=== PATIENT | female | born 1950 | race Caucasian/White ===

== ENCOUNTER 2016-09-29 14:07 | Inpatient (IN) | payer BC ==
--- NOTE | ~2016-09-29 | DS ---
Discharge Summary [facility] [address] [place]. [address] NAME: CAROLYN YEAGER : 54 STATUS : DIS IN PAT#: [id number] AGE: 65 ADM/REG DATE : 09/29/16 MR#: [id number] REPORT SERV DATE: 10/03/16 DICTATED BY: CAROL WEAVER DATE: 10/02/16 REPORT STATUS : Draft TRANSCRIBED BY: MODL DATE: 10/02/16 ADMISSION DATE: 09/29/2016 DISCHARGE DATE: 10/02/2016 CHIEF COMPLAINT ON ADMISSION: Uncontrolled pain at home. DISCHARGE DIAGNOSES: 1. Mycosis fungoides. 2. Olfvk-br-ckctxay pain. 3. End of life. HISTORY OF PRESENT ILLNESS: Please see full H and P by Shanti Mccain NP for details regarding initial presentation. HOSPITAL COURSE: 1. 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 Unfortunately, the patient is too weak to have aggressive chemo and she has not responded to most recent treatments. She has had progression of her disease and per Oncology, she is no longer a candidate for further treatment. After multiple discussions with the patient and family, they have opted for hospice care. The patient wishes to go home and be comfortable. She currently does not have any evidence of active infection in her wounds. She has been seen by Wound Care and hospice can continue to address these wounds. 2. 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 The patient is on dabigatran. We will defer to hospice whether this will be continued. 3. Qcwmx-un-umflnlh pain. The patient's pain is reasonably controlled on current medications. She will be discharged with those with hospice to titrate as appropriate. DISPOSITION: Home with [facility]. Discharge medication reconciliation will be per hospice care. Time spent on this discharge including discussion with case management and the patient's family is greater than 30 minutes. DNK/KEENA Carol Weaver MD / [id number] CC: Carol Weaver MD
--- NOTE | ~2016-09-29 | HP ---
History And Physical [place] [id number] [facility] [place]. [address] NAME: CAROLYN YEAGER : 54 STATUS : ADM IN [facility]#: [id number] AGE: 65 ADM/REG DATE : 09/29/16 MR#: [id number] REPORT SERV DATE: 09/29/16 DICTATED BY: LEWIS MCCAIN DATE: 09/29/16 REPORT STATUS : Draft TRANSCRIBED BY: MODL DATE: 09/29/16 DATE OF ADMISSION: 09/29/2016 CHIEF COMPLAINT: Uncontrolled pain, states hurting all over. HISTORY OF PRESENT ILLNESS: This patient is a 65-year-old female, who presented as a direct admission from Dr. Nishant Kitchen's office. The patient stated that she was having uncontrolled pain, rating her pain 20/10. States that she has wounds all over and has been unable to rest. Pain medication at home is not controlling her pain. The patient does present with a history of mycosis fungoides. She is under the care of Dr. Nishant Kitchen, [facility]. The patient states that she has had home health care and wound care at home for approximately two weeks. Stating home health nurse had assessed her this a.m. stating that the patient's pain is uncontrolled at home and felt the patient needed to be assessed inpatient. The patient does state that her last chemotherapy was approximately four to five weeks ago, but was last seen in Dr. Nishant Kitchen's office on 09/11/2016. The patient does deny any fever or chills. She denies any shortness of breath or chest pain. REVIEW OF SYSTEMS: Otherwise negative review of system except what is listed above. PAST MEDICAL HISTORY: 1. Hyperlipidemia. 2. Mycosis fungoides. 3. Anal cancer stage II. 4. Ischemic colitis. PAST SURGICAL HISTORY: 1. Thrombectomy, 2013. 2. Thrombolysis, left external iliac artery. 3. Left common femoral endarterectomy. 4. Left external iliac artery stent. ALLERGIES: NO KNOWN ALLERGIES. SOCIAL HISTORY: The patient is with two living children. Denies smoking. Denies alcohol use. Denies illicit drug use. ONCOLOGIST: Dr. Nishant Kitchen. WOUND CARE: Dr. Tolliver. HOME MEDICATIONS: 1. Allopurinol 300 mg one tab b.i.d. 2. Celexa 10 mg one p.o. daily. 3. Vitamin B12 of 1000 mcg inject once. 4. Desonate gel topical. History And Physical [address] [address] NAME: CAROLYN YEAGER : 54 STATUS : ADM IN PAT#: [id number] AGE: 65 ADM/REG DATE : 09/29/16 MR#: [id number] REPORT SERV DATE: 09/29/16 DICTATED BY: LEWIS MCCAIN DATE: 09/29/16 REPORT STATUS : Draft TRANSCRIBED BY: KEENA DATE: 09/29/16 5. Elidel cream topical, take as directed. 6. Fluconazole 200 mg tab one daily. 7. Folic acid 1 mg daily. 8. Hydralazine 25 mg one p.o. every 8 hours p.r.n. 9. MD Lanier mouthwash solution take as directed. 10.Morphine 15 mg one tab every four to 6 hours p.r.n. for pain. 11.Pralatrexate 40 mg daily. 12.Prochlorperazine 10 mg one p.o. every 4 to 6 hours p.r.n. 13.Triamcinolone cream topical as directed. 14.Tylenol PM one tablet at bedtime. 15.Ultram 50 mg one p.o. every 4 to 6 hours p.r.n. for pain. 16.Zofran 8 mg one p.o. every 8 hours p.r.n. for nausea. 17.Valchlor gel topical take as directed. PHYSICAL EXAMINATION: GENERAL: This patient is in no acute distress. VITAL SIGNS: O2 saturations 94% on room air, temperature 98.2, pulse is 97, respirations 16, blood pressure is 114/68. HEENT: Sclerae clear. Conjunctivae pink. NEURO: The patient is alert and oriented to person, place, date, time. NECK: No bruits. CHEST: Clear bilateral. No wheezes, rales, or rhonchi. HEART: Regular rhythm. No murmurs, rubs, or gallops. ABDOMEN: Soft. Bowel sounds active. Last bowel movement 09/29/2016. EXTREMITIES: No edema. SKIN: Lesions on forehead, arms, chest, back, lower extremities, buttocks, some larger than 2 cm. LABORATORY DATA: To be obtained. IMAGING: To be obtained. ASSESSMENT AND PLAN: 1. Mycosis fungoides, multiple plaques and lesions noted on all extremities, chest and back, buttocks and face. Wound Care will be consulted to see. We will obtain laboratory data as well. We will hold off on antibiotics at this time. We will consult Dr. Nishant Kitchen to see the patient as well. 2. Anal cancer. 3. Acute on chronic pain due to mycosis fungoides. The patient will continue home medications. We will add Dilaudid p.r.n. as needed. 4. Code status. The patient at this time is a full code. RANDA/KEENA Lewis Chatterjee History And Physical [address] [address] NAME: CAROLYN YEAGER : 54 STATUS : ADM IN [facility]#: [id number] AGE: 65 ADM/REG DATE : 09/29/16 MR#: [id number] REPORT SERV DATE: 09/29/16 DICTATED BY: LEWIS MCCAIN DATE: 09/29/16 REPORT STATUS : Draft TRANSCRIBED BY: KEENA DATE: 09/29/16 DAVE Mccain / [id number] CC: Tin Weaver MD
[~2016-09-29 14:07] MED LIST: ASA5GR PO; ATV.5 PO; ELIDEL TOP; LORTAB 5 PO; PLAVIX PO; TRIAMCINOLONE454 GM TOP; TYLENOL PM PO; VIST25 PO; ZOFRAN4 PO; [UNRECOGNIZED DRUG - OTHER] PO
[2016-09-29 16:49] LABS: HEMOGLOBIN 10.5 g/dL (12.0-16.0); MEAN CORPUS HGB CONC 33.8 g/dL (32.0-36.0); MEAN CORPUSCULAR HEMOGLOB 28.2 pg (26.0-34.0); MEAN PLATELET VOLUME 8.6 fL (9.2-13.0); RBC DISTRIBUTION WIDTH 15.4 % (12.0-16.0); RED CELL COUNT 3.72 10/6/uL (4.0-5.6)
[2016-09-29 16:52] LABS: HEMATOCRIT 31.1 % (36.0-48.0); MANUAL DIFF YES %; MEAN CORPUSCULAR VOLUME 83.6 fL (80-100); PLATELET COUNT 668 10/3/uL (150-400)
[2016-09-29 17:06] LABS: BUN (BLOOD UREA NITROGEN) 18 MG/DL (6-23); CALCIUM, SERUM 7.9 MG/DL (8.5-10.4); CHLORIDE, SERUM 98 MMOL/L (96-112); CO2 (CARBON DIOXIDE) 29 MMOL/L (24-34); CREATININE 0.82 MG/DL (0.55-1.02); GFR AFRICAN AMERICAN 88 ML/MIN (>=60); GFR NON AFRICAN AMERICAN 76 ML/MIN (>=60); GLUCOSE, SERUM 91 MG/DL (60-99); POTASSIUM, SERUM 4.1 MMOL/L (3.5-5.3); SODIUM, SERUM 132 MMOL/L (135-148)
[2016-09-29] MEDS ORDERED: PRADAXA150 MG PO (17:08)
[2016-09-29] MEDS ORDERED: FOLIC PO (17:09)
[2016-09-29] MEDS ORDERED: MSIMMR15 PO (17:09)
[2016-09-29] MEDS ORDERED: ATV.5 PO (17:09)
[2016-09-29] MEDS ORDERED: CELEXA10 PO (17:10)
[2016-09-29] MEDS ORDERED: [UNRECOGNIZED DRUG - OTHER] PO (17:12)
[2016-09-29] MEDS ORDERED: TRIAMCINOLONE C80 GM TOP (17:13)
[2016-09-29] MEDS ORDERED: ELIDEL TOP (17:13)
[2016-09-29 17:14] LABS: BAND NEUTROPHILS 18 %; BASOPHILS 1 %; BASOPHILS ABSOLUTE (CALC) 0.18 10/3/uL (0.0-0.16); EOSINOPHILS 3 %; EOSINOPHILS ABSOLUTE (CALC) 0.54 10/3/uL (0.0-0.53); IMMATURE GRANS ABSOLUTE (CALC) 1.44 10/3/uL (0.0-0.11); LYMPHOCYTES 20 %; METAMYELOCYTES 7 %; MONOCYTES 13 %; MONOCYTES ABSOLUTE (CALC) 2.34 10/3/uL (0.21-1.20); MYELOCYTES 1 %; PLATELET ESTIMATE INC (ADEQUATE); RBC MORPHOLOGY NORM (NORMAL); SEGMENTED NEUTROPHIL (0) 37 %; TOTAL NUCLEATED CELLS 100
[2016-09-29] MEDS ORDERED: ZOFRAN8 PO (17:14)
[2016-09-29] MEDS ORDERED: COMP10B PO (17:15)
[2016-10-02] MEDS ORDERED: T PO (10:48)
== END 2016-10-02 15:36 | disposition hospice, home (50) | DRG 841 ==
LOC: 4EA 14:07
PROVIDERS: Internal Medicine
DX: C84.08 Mycosis fungoides, lymph nodes of multiple sites (principal); C21.0 Malignant neoplasm of anus, unspecified; C84.A0 Cutaneous T-cell lymphoma, unspecified, unspecified site; Z51.5 Encounter for palliative care
CPT/HCPCS: 80048; 85025; 85347; A9270-GY; J1170; P9047